=== PATIENT | male | born 1950 | race Caucasian/White ===

== ENCOUNTER 2020-06-23 08:26 | Outpatient (CLI) | payer MEDICARE, MEDICAID ==
[~2020-06-23 08:26] MED LIST: ALB0.5UD IH; CYCL-1 PO; DULO-31 PO; IBUP-1984 PO; PANT20TA2 PO
== END 2020-06-23 23:59 | disposition home or self-care (01) ==
LOC: RT 08:26
PROVIDERS: ATTEND Internal Medicine Critical Care Medicine
DX: J44.9 Chronic obstructive pulmonary disease, unspecified (principal); J84.9 Interstitial pulmonary disease, unspecified
CPT/HCPCS: 94618

== ENCOUNTER → 2020-12-26 | Emergency (ER) | payer MEDICARE, MEDICAID ==
--- NOTE | 2020-12-26 23:55 | NUR ---
Pt. mainly in the ED to inquire about rapid covid testing. He states that he has an immunocompromised grand child and he is afraid to expose him to COVID-19. Pt. was given information regarding test sites within the county. Pt. expressed that he would rather receive screening from these alternate clinics to lessen his exposure. Pt. called back to provide him a ride back home.
--- NOTE | 2020-12-27 00:05 | NUR ---
Pt. left for home with .
== END | disposition home or self-care (01) ==
LOC: ER 23:40
DX: R50.9 Fever, unspecified (principal); Z53.21 Procedure and treatment not carried out due to patient leaving prior to being seen by health care provider

== ENCOUNTER 2021-07-25 19:34 | Emergency (ER) | payer MEDICARE, MEDICAID ==
[~2021-07-25] VITALS: Ht 175.3 cm; Wt 100.0 kg
[2021-07-25] MEDS ORDERED: ondansetron 4mg rapidly disintigrating tab PO ONE (20:15)
[2021-07-25] MEDS ORDERED: CASIRIVIMAB/IMDEVIMAB inject. 10 ML in normal saline 100ml IV soln 100 ML IV ONE (20:15)
[2021-07-25] MEDS ORDERED: AZIT250T27 PO (20:42)
[2021-07-25] MEDS ORDERED: BUDE180A INH (20:42)
[2021-07-25] MEDS ORDERED: DEXA6TAB6 PO (20:42)
[2021-07-25 23:09] VITALS: BP 124/75
== END 2021-07-25 23:10 | disposition home or self-care (01) ==
LOC: ER 19:34
DX: U07.1 COVID-19 (principal); R06.02 Shortness of breath; J44.9 Chronic obstructive pulmonary disease, unspecified; Z87.891 Personal history of nicotine dependence; Z79.899 Other long term (current) drug therapy
CPT/HCPCS: 71045; 99283; M0243; Q0244

== ENCOUNTER 2021-08-02 11:41 | Emergency (ER) | payer MEDICARE, MEDICAID ==
[~2021-08-02] VITALS: Ht 175.3 cm; Wt 100.0 kg
[~2021-08-02 11:41] MED LIST changes: +BUDE180A INH; +DEXA6TAB6 PO
[2021-08-02 11:53] VITALS: BP 129/71
== END 2021-08-02 13:05 | disposition home or self-care (01) ==
LOC: ER 11:43
DX: Z20.822 Contact with and (suspected) exposure to COVID-19 (principal); J44.9 Chronic obstructive pulmonary disease, unspecified
CPT/HCPCS: 99281

== ENCOUNTER 2021-09-11 14:26 | Emergency (ER) | payer MEDICARE, MEDICAID ==
[~2021-09-11] VITALS: Ht 175.3 cm; Wt 100.0 kg
[2021-09-11 14:32] VITALS: BP 140/78
[2021-09-11] MEDS ORDERED: AMOX-117 PO (16:45)
[2021-09-11] MEDS ORDERED: HYDROcodone/acetaminophen 5mg/325mg tablet PO ONE (16:45)
== END 2021-09-11 17:03 | disposition home or self-care (01) ==
LOC: ER 14:27
DX: K04.7 Periapical abscess without sinus (principal); J44.9 Chronic obstructive pulmonary disease, unspecified; Z79.899 Other long term (current) drug therapy
CPT/HCPCS: 99283

== ENCOUNTER 2022-06-01 14:32 | Emergency (ER) | payer MEDICARE, MEDICAID ==
[~2022-06-01] VITALS: Ht 175.3 cm; Wt 95.5 kg
[2022-06-01] MEDS ORDERED: BEBTELOVIMAB 175 MG/2 ML VIAL IV ONE (16:55)
[2022-06-01] MEDS ORDERED: ONDA4TAB12 PO (16:55)
[2022-06-01 18:57] VITALS: BP 131/84
== END 2022-06-01 19:05 | disposition home or self-care (01) ==
LOC: ER 14:33
DX: U07.1 COVID-19 (principal); J44.9 Chronic obstructive pulmonary disease, unspecified; Z79.899 Other long term (current) drug therapy
CPT/HCPCS: 87635; 99285; C9803; 99283